=== PATIENT | male | born 1975 | race Caucasian/White ===

== ENCOUNTER 2021-11-22 21:37 | Emergency (ER) | payer MEDICAID ==
[~2021-11-22] VITALS: Ht 177.8 cm; Wt 90.7 kg
[2021-11-22 21:37] VITALS: BP 145/105
--- NOTE | 2021-11-22 21:40 | NUR ---
TO LOBBY A/W BED VIA WHEEL CHAIR
--- NOTE | 2021-11-22 22:17 | NUR ---
PT TAKEN TO BED 12 VIA WC
--- NOTE | 2021-11-22 22:41 | NUR ---
ERMD AT BEDSIDE.
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
--- NOTE | 2021-11-23 00:02 | NUR ---
PATIENT RESTING IN BED COMFORTABLY. BED LOW AND LOCKED. ALL NEEDS MET AT THIS TIME.
[2021-11-23 02:47] VITALS: BP 127/84
--- NOTE | 2021-11-23 02:47 | NUR ---
Patient discharged with v/s stable. Written and verbal after care instructions given and explained. Patient verbalized understanding. Ambulatory with steady gait. All questions addressed prior to discharge. Advised to follow up with PMD.
== END 2021-11-23 02:47 | disposition home or self-care (01) ==
LOC: MED 21:37
DX: S01.01XA Laceration without foreign body of scalp, initial encounter (principal); Z71.6 Tobacco abuse counseling; Y04.2XXA Assault by strike against or bumped into by another person, initial encounter; Y93.89 Activity, other specified; Y92.89 Other specified places as the place of occurrence of the external cause; Y99.8 Other external cause status
CPT/HCPCS: 90471; 90715; 99285